=== PATIENT | female | born 2005 | race Caucasian/White ===

== ENCOUNTER 2023-03-12 08:51 | Emergency (ER) | payer BC, SELFPAY ==
[2023-03-12 08:54] VITALS: BP 130/58; PULSE 95; RESP 18; TEMP 37.2; O2SAT 100
--- NOTE | 2023-03-12 09:19 | ED.GENADUL_ITS ---
Discharge Plan Disposition Patient Disposition: Home Condition: Stable Discharge Details Chief Complaint: EarProblem Clinical Impression: Perforation of left tympanic membrane Primary Care Provider: Bre Kauffman ED Provider: James Walls Home Meds and New Rx's Prescriptions: No Action No Known Home Meds Discharge Instructions Instructions: Ruptured Eardrum (ED) Additional Instructions: Avoid any water in the ear (keep totally dry) to prevent middle ear infection. You can place a cotton ball with petroleum jelly in your outer ear when showering. Please follow-up with associate research scientist. Call tomorrow to schedule follow-up appointment. Please contact your primary care physician to arrange follow-up. Return to the ER immediately for any worsening or new concerning symptoms. Referrals: [facility] [Provider Group] Bre Kauffman [Primary Care Provider] - Medical Decision Making 17-year-old female here with accidental perforation left tympanic membrane, healing with no signs of infection. No indication for antibiotics at this time. Usual customary discharge instructions were reviewed with the patient. Plan for outpatient follow-up with ENT. HPI General Mode of arrival: ambulatory . Date/Time Provider Initiated Documentation: 03/12/23 09:15 . Limitations to Documentation: no limitations . Information obtained by: patient . HPI Narrative: 17-year-old female here with chief complaint of accidental injury to her left eardrum. Patient notes she was cleaning her left ear with a blunted Wilfredo pin a few days ago and thinks she ruptured her eardrum. She states ear was bleeding. Bleeding is stopped. She continues to feel a sense of fullness. No pain. Patient had no pain/fullness preceding injury. No associated fever. Related Data Home Medications Medication Instructions Recorded Confirmed Unknown [No Known Home Meds] 03/12/23 03/12/23 Allergies Allergy/AdvReac Type Severity Reaction Status Date / Time No Known Allergies Allergy Unverified 03/12/23 09:00 General Stated Complaint: EarProblem HEIDI: 4 Review of Systems Constitutional Constitutional: Denies fever(s) ENT Ears, Nose, Mouth, and Throat: Reports as per HPI PFSH All Active Problems Perforation of left tympanic membrane (Acute) Social History Smoking risk assessment performed?: No Exam HENMT Ears: TM normal on the right, EAC's normal, mastoids normal, no periauricular adenopathy and TM abnormal (Left with external dried blood, no obvious large perforation) not with effusion and not erythematous Throat: posterior oropharynx normal Neck Neck: no lymphadenopathy noted Course Vital Signs Vital signs: Vital Signs Temperature 37.2 C 03/12/23 08:54 Pulse 95 H 03/12/23 08:54 Respiratory Rate 18 03/12/23 08:54 Blood Pressure 130/58 L 03/12/23 08:54 Pulse Oximetry 100 03/12/23 08:54 Temperature 37.2 C 03/12/23 08:54 Temperature Source Temporal Artery Scan 03/12/23 08:54 Pulse 95 H 03/12/23 08:54 Respiratory Rate 18 03/12/23 08:54 Blood Pressure 130/58 L 03/12/23 08:54 Blood Pressure Position Sitting 03/12/23 08:54 Pulse Oximetry 100 03/12/23 08:54 Oxygen Delivery Method Room Air 03/12/23 08:54 Oxygen Flow Rate 0 03/12/23 08:54
== END 2023-03-12 09:43 | disposition home or self-care (01) ==
PROVIDERS: Emergency Provider Student in an Organized Health Care Education/Training Program; PCP Nurse Practitioner Family
DX: H72.92 Unspecified perforation of tympanic membrane, left ear (principal)
CPT/HCPCS: 99281; 99282

== ENCOUNTER 2023-07-27 08:18 | Outpatient (CLI) | payer BC, SELFPAY | END 2023-07-27 08:19 | PROVIDERS: PCP Nurse Practitioner Family; Visit Provider Nurse Practitioner Family | DX: R00.0 Tachycardia, unspecified (principal) | CPT/HCPCS: 93246 ==

== ENCOUNTER 2023-08-07 05:05 | Outpatient (CLI) | payer BC, SELFPAY ==
[2023-08-07 09:09] LABS: Abs Immature Grans 0.01 10^3/uL (0.0-0.06); Absolute Basophil Count 0.08 10^3/uL (0.0-0.2); Absolute Eosinophil Count 0.34 10^3/uL (0.0-0.7); Absolute Lymphocyte Count 1.96 10^3/uL (1.2-3.4); Absolute Monocyte Count 0.39 10^3/uL (0.1-0.8); Absolute Neutrophil Count 2.85 10^3/uL (1.2-6.7); Basophils % 1.4; HCT 38.4 % (36.0-46.0); HGB 13.4 g/dL (11.2-15.7); Immature Grans % 0.2; Lymphocytes % 34.8; MCH 29.9 pg (27.0-33.0); MCHC 34.9 % (32.0-36.0); MCV 86 fL (80-95); MPV 10.8 fL (8.0-11.0); Monocytes % 6.9; Neutrophils % 50.7; Platelet Count 299 10^3/uL (130-400); RBC 4.48 10^6/uL (3.93-5.22); RDW 12.5 % (11.7-14.6); RDW-SD 38.8 fL; WBC 5.63 10^3/uL (4.4-10.8)
[2023-08-07 09:41] LABS: ALT 17 U/L (14-59); AST 15 U/L (15-37); Albumin 4.5 g/dL (3.4-5.0); Alkaline Phosphatase 38 U/L (46-116); Anion Gap 11.6 mmol/L (3-11); BUN 15 mg/dL (7-18); Bilirubin, Total 0.8 mg/dL (0.2-1.0); CO2 24.4 mmol/L (21.0-32.0); CREATININE 0.8 mg/dL (0.55-1.02); Calcium 9.5 mg/dL (8.5-10.1); Chloride 106 mmol/L (98-107); Estimated GFR 108.78 (mL/min/1.73m2); Ferritin 25 ng/mL (8-252); Glucose 95 mg/dL (74-106); Potassium 4.1 mmol/L (3.5-5.1); Sodium 142 mmol/L (136-145); TSH (W/Ref FT4) 2.08 uIU/mL (0.52-4.13); Total Protein 7.4 g/dL (6.4-8.2)
[2023-08-07 09:57] LABS: Iron 189 ug/dL (50-170); Total Iron Binding Capacity 258 ug/dL (250-450); Transferrin Sat 73 % (15-50)
== END 2023-08-07 05:06 | disposition home or self-care (01) ==
LOC: LBO 05:05
PROVIDERS: PCP Nurse Practitioner Family; Visit Provider Nurse Practitioner Family
DX: R00.0 Tachycardia, unspecified
CPT/HCPCS: 36415; 80053; 82728; 83540; 83550; 84443; 85025

== ENCOUNTER 2023-08-21 13:50 | Outpatient (CLI) | payer BC, SELFPAY ==
--- NOTE | 2023-08-21 14:01 | W.CARDEVENT ---
Date of service: 08/21/23 Time of Service: 14:01 Cardiac Event Recorder Referring Provider:: Maribel Louis Indications:: Tachycardia Cardiac Event Note: This is a cardiac event monitor. Patient was monitored for 13 days rhythm throughout was sinus with an average heart rate of 88. Minimum was 48, maximum 170 . Very rare isolated atrial and ventricular ectopic beats There was no atrial fibrillation, no high-grade AV block, no pauses greater than 3 seconds Patient symptoms were reported. These corresponded to sinus rhythm at 89, sinus rhythm at 101, sinus tachycardia at 127
== END 2023-08-21 13:51 | disposition home or self-care (01) ==
LOC: CARDOPNVT 13:50
PROVIDERS: PCP Nurse Practitioner Family; Visit Provider Internal Medicine Cardiovascular Disease
DX: R00.0 Tachycardia, unspecified (principal)